=== PATIENT | male | born 1955 | race Caucasian/White ===

== ENCOUNTER 2023-03-10 07:50 | Inpatient (IN) | payer BC ==
[~2023-03-10] VITALS: Ht 175.3 cm; Wt 112.0 kg
[2023-03-10 07:50] VITALS: BP_SYST 141; PULSE 114; RESP 16; TEMP 102; O2SAT 98
[2023-03-10] MEDS ORDERED: ACETAMINOPHEN 500 MG TABLET PO ONE (08:00)
[2023-03-10] MEDS ORDERED: NS 1000 ML IV.SOLN IV ONE (08:00)
[2023-03-10 08:26] LABS: BASOPHILS % (AUTO) 0.4 % (0.0-2.0); EOSINOPHILS % (AUTO) 0.2 % (0.0-4.0); HEMATOCRIT 46.8 % (36-54); HEMOGLOBIN 14.7 g/dL (14.0-18.0); LYMPHOCYTES # (AUTO) 0.7 K/uL (1.0-5.5); LYMPHOCYTES % (AUTO) 16.9 % (20.5-51.5); MEAN CORPUSCULAR HEMOGLOBIN 25 pg (27-31); MEAN CORPUSCULAR HGB CONC 31 % (32-36); MEAN CORPUSCULAR VOLUME 80 fL (79.0-98.0); MONOCYTES # (AUTO) 0.6 K/uL (0.0-1.0); MONOCYTES % (AUTO) 15.4 % (1.7-9.3); NEUTROPHILS # (AUTO) 2.8 K/uL (1.8-7.7); NEUTROPHILS % (AUTO) 67.1 % (40.0-70.0); PLATELET COUNT (AUTO) 160 K/uL (130-430); RED BLOOD CELL COUNT(AUTO) 5.84 MIL/uL (4.2-6.2); RED CELL DISTRIBUTION WIDTH 15.2 % (9.0-15.0); WHITE BLOOD COUNT (AUTO) 4.1 K/uL (4.8-10.8)
[2023-03-10 08:50] LABS: ANION GAP 7 (5-15); CALCIUM 8.4 mg/dL (8.4-11.0); CARBON DIOXIDE 29 mmol/L (23-29); CHLORIDE 99 mmol/L (98-107); CREATININE 1.31 mg/dL (0.55-1.30); GFR AFRICAN AMERICAN 70 mL/min (>90); GLUCOSE 118 mg/dL (74-106); INR 1.2 (0.80-1.20); POTASSIUM 3.7 mmol/L (3.5-5.1); PROTHROMBIN TIME 12.7 SECS (9.5-12.5); SODIUM SERUM 135 mmol/L (136-145); UREA NITROGEN, BLOOD 12 mg/dL (8-21)
[2023-03-10 08:51] LABS: GFR NON AFRICAN-AMERICAN 58 mL/min (>90)
[2023-03-10 09:06] LABS: ALANINE AMINOTRANSFERASE 26 U/L (12-78); ALBUMIN 3.6 g/dL (3.4-4.8); ASPARTATE AMINOTRANSFERASE 22 U/L (10-37); BILIRUBIN,DIRECT 0.3 mg/dL (0.0-0.3); TOTAL BILIRUBIN 0.9 mg/dL (0.0-1.0); TOTAL PROTEIN, SERUM 7.3 g/dL (6.4-8.3)
[2023-03-10 10:06] LABS: INFLUENZA TYPE B NEGATIVE (NEGATIVE)
[2023-03-10 10:07] LABS: BILIRUBIN,URINE NEGATIVE (NEGATIVE); BLOOD, URINE 1+ (NEGATIVE); CLARITY/URINE CLEAR (CLEAR); COLOR,URINE YELLOW (YELLOW); GLUCOSE,URINE NEGATIVE (NEGATIVE); KETONES,URINE NEGATIVE (NEGATIVE); LEUKOCYTE ESTERASE ,URINE NEGATIVE (NEGATIVE); NITRITE, URINE NEGATIVE (NEGATIVE); PROTEIN URINE 1+ (NEGATIVE); UROBILINOGEN,URINE 0.2 (0.2-1.0)
[2023-03-10 10:10] LABS: INFLUENZA TYPE A Positive (NEGATIVE)
[2023-03-10 10:26] LABS: BACTERIA,URINE RARE /HPF (None Seen); RBC,URINE 0-3 /HPF (0-3); WBC,URINE 0-3 /HPF (0-3)
[2023-03-10] MEDS ORDERED: OSELTAMIVIR PHOSPHATE 75 MG CAPSULE PO ONE ×2 (10:30→12:00)
[2023-03-10] MEDS ORDERED: cefTRIAXone 1 GM in D5W 50 ML IV ONE (10:30)
[2023-03-10] MEDS ORDERED: ZOLPIDEM TARTRATE 5 MG TABLET PO PRN (11:15)
[2023-03-10] MEDS ORDERED: POTASSIUM CHLORIDE 20 MEQ TABLET.ER PO PRN (11:15)
[2023-03-10] MEDS ORDERED: MUPIROCIN 2% TOPICAL OINTMENT 22 GM NS PRN (11:15)
[2023-03-10] MEDS ORDERED: DOCUSATE SODIUM 100 MG CAPSULE PO PRN (11:15)
[2023-03-10] MEDS ORDERED: LORazepam 2 MG/ML VIAL IVP PRN (11:15)
[2023-03-10] MEDS ORDERED: MAGNESIUM SULFATE 50 ML IV PRN (11:15)
[2023-03-10] MEDS ORDERED: ONDANSETRON HCL 4 MG/2 ML VIAL IVP PRN (11:15)
[2023-03-10] MEDS ORDERED: ACETAMINOPHEN 500 MG TABLET PO PRN ×2 (11:15)
[2023-03-10] MEDS ORDERED: NALOXONE HCL 0.4 MG/ML AMP (NARCAN) IVP PRN ×2 (11:15)
[2023-03-10] MEDS ORDERED: IPRATROPIUM/ALBUTEROL SULFATE 3 ML AMPUL.NEB (DUONEB) INH PRN (11:15)
[2023-03-10 11:25] VITALS: PULSE 99; O2SAT 98
[2023-03-10] MEDS ORDERED: cefTRIAXone 1 GM VIAL ONE (11:47)
[2023-03-10] MEDS: NACL 0.9% 1,000 ML IV SCH (11:51)
[2023-03-10] MEDS ORDERED: MECL-225 PO (12:56)
[2023-03-10 20:40] VITALS: BP_SYST 113; PULSE 89; RESP 16; TEMP 99.8; O2SAT 94
[2023-03-10 21:02] VITALS: BP_SYST 113; PULSE 89; RESP 16; TEMP 99.8
[2023-03-10] MEDS: OSELTAMIVIR PHOSPHATE 75 MG CAPSULE PO SCH (22:40)
[2023-03-10] MEDS: HEPARIN SODIUM,PORCINE 5,000 UNITS/ML VIAL SUBCUT SCH (22:43)
[2023-03-11 00:03] VITALS: BP_SYST 112; PULSE 78; RESP 18; TEMP 97.5; O2SAT 94
[2023-03-11] MEDS: NACL 0.9% 1,000 ML IV SCH ×2 (00:42→12:30)
[2023-03-11 06:22] LABS: BASOPHILS % (AUTO) 0.7 % (0.0-2.0); EOSINOPHILS % (AUTO) 0.9 % (0.0-4.0); HEMATOCRIT 43.2 % (36-54); HEMOGLOBIN 13.6 g/dL (14.0-18.0); LYMPHOCYTES # (AUTO) 1.5 K/uL (1.0-5.5); LYMPHOCYTES % (AUTO) 43.7 % (20.5-51.5); MEAN CORPUSCULAR HEMOGLOBIN 25 pg (27-31); MEAN CORPUSCULAR HGB CONC 31 % (32-36); MEAN CORPUSCULAR VOLUME 80 fL (79.0-98.0); MONOCYTES # (AUTO) 0.3 K/uL (0.0-1.0); MONOCYTES % (AUTO) 9.5 % (1.7-9.3); NEUTROPHILS # (AUTO) 1.5 K/uL (1.8-7.7); NEUTROPHILS % (AUTO) 45.2 % (40.0-70.0); PLATELET COUNT (AUTO) 134 K/uL (130-430); RED BLOOD CELL COUNT(AUTO) 5.41 MIL/uL (4.2-6.2); RED CELL DISTRIBUTION WIDTH 15.6 % (9.0-15.0); WHITE BLOOD COUNT (AUTO) 3.4 K/uL (4.8-10.8)
[2023-03-11 06:42] LABS: CALCIUM 7.6 mg/dL (8.4-11.0); CREATININE 0.82 mg/dL (0.55-1.30); POTASSIUM 3.7 mmol/L (3.5-5.1)
[2023-03-11 08:00] VITALS: O2SAT 100
[2023-03-11 08:05] VITALS: BP_SYST 134; PULSE 85; RESP 16; TEMP 98.6; O2SAT 100
[2023-03-11] MEDS: OSELTAMIVIR PHOSPHATE 75 MG CAPSULE PO SCH (08:58)
[2023-03-11] MEDS ORDERED: ASPIRIN 81 MG TABLET(ECOTRIN) PO SCH (09:00)
[2023-03-11] MEDS ORDERED: ATORVASTATIN 20 MG TABLET PO SCH (09:00)
[2023-03-11] MEDS: HEPARIN SODIUM,PORCINE 5,000 UNITS/ML VIAL SUBCUT SCH (09:03)
[2023-03-11] MEDS ORDERED: AZITHROMYCIN 250 MG TABLET PO ONE (09:15)
[2023-03-11] MEDS ORDERED: cefTRIAXone 1 GM in D5W 50 ML IV SCH (10:00)
[2023-03-11 12:00] VITALS: BP_SYST 133; PULSE 85; RESP 18; TEMP 98.6; O2SAT 98
[2023-03-11] MEDS ORDERED: OSEL75CA PO (12:05)
[2023-03-11] MEDS ORDERED: AZIT-93 PO (12:05)
[2023-03-11] MEDS ORDERED: LIP40 PO (12:05)
[2023-03-11] MEDS ORDERED: ASPI-1393 PO (12:05)
[2023-03-11 15:18] VITALS: BP_SYST 116; PULSE 98; RESP 16; TEMP 98.6; O2SAT 96
[2023-03-11 16:00] VITALS: BP_SYST 116; PULSE 98; RESP 16; TEMP 98.6; O2SAT 96
[2023-03-12] MEDS ORDERED: AZITHROMYCIN 250 MG TABLET PO SCH (09:00)
== END 2023-03-11 17:45 | disposition home or self-care (01) | DRG 720 ==
LOC: SED 07:50 → STU 10:23 → SMU 03-11 11:16
PROVIDERS: ADMIT General Practice; ATTEND General Practice
DX: A41.9 Sepsis, unspecified organism (principal); J96.01 Acute respiratory failure with hypoxia; N17.0 Acute kidney failure with tubular necrosis; J10.00 Influenza due to other identified influenza virus with unspecified type of pneumonia; I21.A1 Myocardial infarction type 2; Z20.822 Contact with and (suspected) exposure to COVID-19; J18.9 Pneumonia, unspecified organism
CPT/HCPCS: 36415; 70450-TC; 71045; 76376; 80048; 80076; 81000; 81001; 81015; 83037; 83605; 83735; 84484; 85025; 85610-TC; 85730-TC; 87040; 87086; 93005; 93306; 99285; G0378; G9035; J0696; J1644; J7060; Q0144